=== PATIENT | male | born 1985 | race Caucasian/White ===

== ENCOUNTER 2018-07-27 21:31 | Emergency (ER) | payer MEDICAID ==
[2018-07-27 23:19] LABS: ADD MAN DIFF? NO
[2018-07-27 23:21] LABS: BASOPHILS % 0.4 % (0.0-2.0); EOSINOPHILS % 0.3 % (0.0-7.0); HEMATOCRIT 41.9 % (42.0-52.0); LYMPHOCYTES # 0.8 10^3/ul (0.8-2.9); LYMPHOCYTES % 9.1 % (15.0-51.0); MEAN CORPUSCULAR HEMOGLOBIN 28.5 pg (29.0-33.0); MEAN CORPUSCULAR HGB CONC 33.4 g/dl (32.0-37.0); MEAN CORPUSCULAR VOLUME 85.2 fl (82.0-101.0); MEAN PLATELET VOLUME 11.8 fl (7.4-10.4); MONOCYTE # 0.8 10^3/ul (0.3-0.9); MONOCYTES % 8.8 % (0.0-11.0); NEUTROPHIL # 7.4 10^3/ul (1.6-7.5); NEUTROPHILS % 81.1 % (39.0-77.0); PLATELET COUNT 184 10^3/UL (140-415); RED BLOOD COUNT 4.92 10^6/ul (4.70-6.10)
[2018-07-27 23:21] LABS: WHITE BLOOD COUNT 9.2 10^3/ul (4.8-10.8)
[2018-07-27 23:26] LABS: ADD UMIC YES; UR ASCORBIC ACID 40 mg/dL (NEGATIVE); UR BILIRUBIN (Dip) NEGATIVE (NEGATIVE); UR BLOOD (Dip) NEGATIVE (NEGATIVE); UR CLARITY CLEAR (CLEAR); UR COLOR YELLOW (YELLOW); UR GLUCOSE (Dip) NEGATIVE (NEGATIVE); UR KETONES (Dip) TRACE mg/dL (NEGATIVE); UR LEUKOCYTE ESTERASE (Dip) NEGATIVE Leu/ul (NEGATIVE); UR MUCUS FEW /HPF (NONE SEEN); UR NITRITE (Dip) NEGATIVE (NEGATIVE); UR RBC 10 /HPF (0-5); UR SPECIFIC GRAVITY (Dip) 1.023 (1.003-1.030); UR TOTAL PROTEIN (Dip) 1+ mg/dl (NEGATIVE); UR UROBILINOGEN (Dip) NEGATIVE (NEGATIVE); UR WBC 1 /HPF (0-5)
[2018-07-27] MEDS: SODIUM CHLORIDE 0.9% 1L BAG IV* (23:37)
[2018-07-27] MEDS: ACETAMINOPHEN 325 MG TAB PO (23:37)
[2018-07-27 23:39] LABS: ANION GAP 12 (5-13); BLOOD UREA NITROGEN 9 mg/dl (7-20); CALCIUM 9.1 mg/dl (8.4-10.2); CARBON DIOXIDE 28 mmol/L (21-31); CHLORIDE 99 mmol/L (97-110); CREATININE 0.91 mg/dl (0.61-1.24); Estimated GFR > 60 mL/min (>60); GLUCOSE 108 mg/dl (70-220); PARTIAL THROMBOPLASTIN TIME 33.2 Sec (23.0-35.0); POTASSIUM 4.1 mmol/L (3.5-5.1); PROTIME 12.3 Sec (11.9-14.9); SODIUM 139 mmol/L (135-144)
[2018-07-27 23:51] LABS: TROPONIN-I < 0.012 ng/ml (0.000-0.120)
[2018-07-28] MEDS: KETOROLAC 30 MG INJ IV (00:10)
== END 2018-07-28 02:36 | disposition home or self-care (01) ==
LOC: E/R 07-28 02:36
DX: J06.9 Acute upper respiratory infection, unspecified (principal)
CPT/HCPCS: 36415; 71045; 80048; 81001; 83605; 84484; 85025; 85610; 85730; 87040; 87086; 93005; 96374; 99285-25